=== PATIENT | male | born 1950 | race Caucasian/White ===

== ENCOUNTER 2018-09-25 07:08 | Emergency (ER) | payer OTHER, SELFPAY ==
[2018-09-25 07:54] LABS: Absolute Lymphocytes (CBC) 0.6 K/uL (0.7-4.9); Basophils % 1.1 % (0-1.3); Eosinophils % 2.8 % (0-4.4); Hematocrit 39.9 % (39.6-49.0); Lymphocytes % 10.8 % (15.3-44.8); MPV 8.4 fL (7.6-11.3); Monocytes % 9.1 % (3.3-12.3); RBC Red Blood Cell Count 4.74 M/uL (4.33-5.43)
--- NOTE | 2018-09-25 07:59 | RAD REPORT ---
EXAM DESCRIPTION: CT - Head Brain Wo Cont - 09/25/2018 7:45 am CLINICAL HISTORY: Transient alteration of awareness, declining state COMPARISON: None. TECHNIQUE: Axial 5 mm thick images of the head were obtained without IV contrast. All CT scans are performed using dose optimization technique as appropriate and may include automated exposure control or mA/KV adjustment according to patient size. FINDINGS: No intracranial hemorrhage, mass, edema or shift of mid-line structures. No acute infarcti on changes seen. Mild atrophy and minimal chronic ischemic changes are present. Ventricles are in pro portion to the volume loss. Partially visualized paranasal sinuses show minimal mucosal thickening in the maxillary sinuses. No a ir-fluid levels. Right-side mastoid air cells are clear. Left side mastoid air cells are fully opacif ied and there is partial opacification of the middle ear. No acute bony findings. IMPRESSION: Mild atrophy and minimal chronic ischemic changes present. No acute intracranial finding . Left-side mastoiditis findings are evident with partial opacification of the middle ear.
[2018-09-25 08:13] LABS: Protime INR 5.39
[2018-09-25 08:17] LABS: ALT/SGPT 56 U/L (12-78); AST/SGOT 65 U/L (15-37); Albumin 3.4 g/dL (3.4-5.0); Alkaline Phosphatase 103 U/L (45-117); BUN Blood Urea Nitrogen 9 mg/dL (7-18); Bicarbonate 31 mmol/L (21-32); Bilirubin Direct 0.3 mg/dL (0-0.2); Bilirubin Total 0.8 mg/dL (0.2-1.0); Glucose Level 91 mg/dL (74-106); Magnesium 1.7 mg/dL (1.8-2.4); NT PRO-BNP 207 pg/mL (<125); Potassium 3.4 mmol/L (3.5-5.1); Protein, Total 7.4 g/dL (6.4-8.2); Sodium Level 138 mmol/L (136-145); Troponin (Emerg Dept Use Only) < 0.02 ng/mL (0.0-0.045)
[2018-09-25 08:35] LABS: Anisocytosis 1+; Blood Morphology Comment NOTED (NOT SEEN); Platelet Estimate ADEQ; Urine White Blood Cell Casts OK
--- NOTE | 2018-09-25 08:39 | RAD REPORT ---
EXAM DESCRIPTION: RAD - Chest Single View - 09/25/2018 7:58 am CLINICAL HISTORY: Dyspnea COMPARISON: None. TECHNIQUE: AP portable chest image was obtained 0755 hours . FINDINGS: Lung volumes are low. No peripheral mass or consolidation. No failure or volume overload s uspected. Pacemaker/defibrillator is in place. Heart and vasculature are normal. No measurable pleura l effusion and no pneumothorax. No acute bony abnormality seen. No acute aortic findings suspected. IMPRESSION: No acute cardiopulmonary process.
[2018-09-25] MEDS ORDERED: MAGNESIUM SULFATE 1 gm IVPB 1 GM/100 ML BAG IV ONE (08:45)
[2018-09-25] MEDS ORDERED: POTASSIUM CL SA 10 MEQ TAB PO ONE (08:45)
--- NOTE | 2018-09-25 08:52 | EDPHYS ---
Physician Documentation [facility] Name: Massimo Rivero Age: 68 yrs Sex: Male : 1950 Arrival Date: 09/25/2018 Time: 07:02 Bed 13 Private MD: None, None ED Physician Александр Ruelas HPI: 09/25 08:41 This 68 yrs old Male presents to ER via Wheelchair with complaints of Fall Injury. jr8 08:41 Details of fall: The patient fell from an upright position, while standing. Onset: The jr8 symptoms/episode began/occurred acutely, today. Associated injuries: The patient sustained no obvious injury. Severity of symptoms: At their worst the symptoms were mild. The patient has not experienced similar symptoms in the past. The patient has not recently seen a physician. Patient stated that he fell for the third time secondary to weakness. Denies any pain or injury today. Historical: - Allergies: 07:23 NSAIDS; hj - Home Meds: :23 furosemide 40 mg Oral tab 1 tab 2 times per day [Active]; potassium chloride 20 mEq hj Oral TbER 1 tab 2 times per day [Active]; carvedilol 12.5 mg oral tab 1 tab 2 times per day [Active]; lisinopril 10 mg Oral tab 1 tab once daily [Active]; atorvastatin 40 mg oral tab 1 tab once daily [Active]; Coumadin 2.5 mg Oral tab 1 tab once daily [Active]; Jantoven 2 mg oral tab 1 tab once daily [Active]; - PMHx: 07:23 CHF; Hypertension; Hyperlipidemia; Diverticulitis; hj - PSHx: 07:23 pacemaker; prostatectomy; hj - Immunization history:: Adult Immunizations up to date. - Social history:: Smoking status: Patient/guardian denies using tobacco, Patient/guardian denies using alcohol. - Ebola Screening: : Patient negative for fever greater than or equal to 101.5 degrees Fahrenheit, and additional compatible Ebola Virus Disease symptoms Patient denies exposure to infectious person Patient denies travel to an Ebola-affected area in the 21 days before illness onset. ROS: 08:41 Eyes: Negative for injury, pain, redness, and discharge, ENT: Negative for injury, jr8 pain, and discharge, Neck: Negative for injury, pain, and swelling, Cardiovascular: Negative for chest pain, palpitations, and edema, Respiratory: Negative for shortness of breath, cough, wheezing, and pleuritic chest pain, Abdomen/GI: Negative for abdominal pain, nausea, vomiting, diarrhea, and constipation, Back: Negative for injury and pain, Skin: Negative for injury, rash, and discoloration. 08:41 MS/Extremity: Negative for injury and deformity. 08:41 Constitutional: Positive for malaise. 08:41 Neuro: Positive for weakness. Exam: 08:41 Eyes: Pupils equal round and reactive to light, extra-ocular motions intact. Lids and jr8 lashes normal. Conjunctiva and sclera are non-icteric and not injected. Cornea within normal limits. Periorbital areas with no swelling, redness, or edema. ENT: Nares patent. No nasal discharge, no septal abnormalities noted. Tympanic membranes are normal and external auditory canals are clear. Oropharynx with no redness, swelling, or masses, exudates, or evidence of obstruction, uvula midline. Mucous membranes moist. Neck: Trachea midline, no thyromegaly or masses palpated, and no cervical lymphadenopathy. Supple, full range of motion without nuchal rigidity, or vertebral point tenderness. No Meningismus. Cardiovascular: Regular rate and rhythm with a normal S1 and S2. No gallops, murmurs, or rubs. Normal PMI, no JVD. No pulse deficits. 2+ edema noted lower extremities bilaterally Respiratory: Lungs have equal breath sounds bilaterally, clear to auscultation and percussion. No rales, rhonchi or wheezes noted. No increased work of breathing, no retractions or nasal flaring. Abdomen/GI: Soft, non-tender, with normal bowel sounds. No distension or tympany. No guarding or rebound. No evidence of tenderness throughout. Back: No spinal tenderness. No costovertebral tenderness. Full range of motion. Skin: Warm, dry with normal turgor. Normal color with no rashes, no lesions, and no evidence of cellulitis. MS/ Extremity: Pulses equal, no cyanosis. Neurovascular intact. Full, normal range of motion. Neuro: Awake and alert, GCS 15, oriented to person, place, time, and situation. Cranial nerves II-XII grossly intact. Motor strength 5/5 in all extremities. Sensory grossly intact. Cerebellar exam normal. Normal gait. Vital Signs: 07:25 BP 134 / 90; Pulse 80; Resp 18; Temp 98.1(TE); Pulse Ox 96% on R/A; Weight 115.21 kg; hj Height 6 ft. 2 in. (187.96 cm); Pain 2/10; 08:48 BP 140 / 81; Pulse 81; Resp 18; Pulse Ox 97% on R/A; hj 09:49 BP 142 / 80; Pulse 80; Resp 18; Pulse Ox 98% on R/A; hj 07:25 Body Mass Index 32.61 (115.21 kg, 187.96 cm) MDM: 07:06 Patient medically screened. [facility] 08:51 Data reviewed: vital signs, nurses notes, lab test result(s), EKG, radiologic studies, [facility] CT scan, plain films. Data interpreted: Pulse oximetry: on room air is 97 %. Interpretation: normal. Counseling: I had a detailed discussion with the patient and/or guardian regarding: the historical points, exam findings, and any diagnostic results supporting the discharge/admit diagnosis, lab results, radiology results, the need for outpatient follow up, a family practitioner, to return to the emergency department if symptoms worsen or persist or if there are any questions or concerns that arise at home. 09/25 07:22 Order name: Basic Metabolic Panel 09/25 07:22 Order name: CBC with Diff; Complete Time: 08:38 09/25 07:22 Order name: LFT's; Complete Time: 08:25 09/25 07:22 Order name: Magnesium; Complete Time: 08:25 09/25 07:22 Order name: NT PRO-BNP; Complete Time: 08:25 09/25 07:22 Order name: PT-INR; Complete Time: 08:14 09/25 07:22 Order name: Troponin (emerg Dept Use Only); Complete Time: 08:25 09/25 07:22 Order name: XRAY Chest (1 view); Complete Time: 08:41 09/25 07:22 Order name: EKG; Complete Time: 07:24 09/25 07:23 Order name: CT Head Brain wo Cont; Complete Time: 08:13 09/25 07:23 Order name: Basic Metabolic Panel; Complete Time: 08:25 EDMS 09/25 08:04 Order name: CBC Smear Scan; Complete Time: 08:38 [facility] 09/25 07:22 Order name: Cardiac monitoring; Complete Time: 07:26 [facility] 09/25 07:22 Order name: EKG - Nurse/Tech; Complete Time: 07:36 [facility] 09/25 07:22 Order name: IV Saline Lock; Complete Time: 07:56 [facility] 09/25 07:22 Order name: Labs collected and sent; Complete Time: 07:56 [facility] 09/25 07:22 Order name: O2 Per Protocol; Complete Time: 07:26 [facility] 09/25 07:22 Order name: O2 Sat Monitoring; Complete Time: 07:26 [facility] Administered Medications: 08:25 Drug: Magnesium Sulfate 1 grams Route: IVPB; Infused Over: 1 hrs; Site: right antecubital; 08:58 Follow up: IV Status: Completed infusion 09:50 Follow up: IV Status: Completed infusion; IV Intake: 100ml 08:25 Drug: Potassium Chloride 20 mEq Route: PO; 08:58 Follow up: Response: No adverse reaction Disposition: 09/26 09:47 Co-signature as Attending Physician, Александр Ruelas MD I agree with the assessment and [facility] plan of care. Disposition: 09/25/18 08:51 Discharged to Home. Impression: Weakness. - Condition is Stable. - Discharge Instructions: Weakness. - Medication Reconciliation Form, Thank You Letter, Antibiotic Education, Prescription Opioid Use form. - Follow up: Private Physician; When: 1 - 2 days; Reason: Recheck today's complaints, Continuance of care, Re-evaluation by your physician. - Problem is new. - Symptoms have improved. Signatures: Dispatcher [employer] Александр Zayas MD MD cha Roszak, Josh, PA PA jr8 Carlos Manuel Barber RN RN hj Corrections: (The following items were deleted from the chart) 09/25 09:50 08:51 09/25/2018 08:51 Discharged to Home. Impression: Weakness. Condition is Stable. hj Forms are Medication Reconciliation Form, Thank You Letter, Antibiotic Education, Prescription Opioid Use. Follow up: Private Physician; When: 1 - 2 days; Reason: Recheck today's complaints, Continuance of care, Re-evaluation by your physician. Problem is new. Symptoms have improved. jr8
--- NOTE | 2018-09-25 08:52 | ER ---
Nurse's Notes [facility] [place], [place] Name: Massimo Rivero Age: 68 yrs Sex: Male : 1950 Arrival Date: 09/25/2018 Time: 07:02 Bed 13 Private MD: None, None Diagnosis: Weakness Presentation: 09/25 07:17 Presenting complaint: Patient states: im shivering and my legs and hands are swollen, hj yesterday i fell but did not hit head and no LOC; reports SOB; denies chest pain;. Transition of care: patient was not received from another setting of care. Onset of symptoms was September 25, 2018. Risk Assessment: Do you want to hurt yourself or someone else? Patient reports no desire to harm self or others. Initial Sepsis Screen: Does the patient meet any 2 criteria? No. Patient's initial sepsis screen is negative. Does the patient have a suspected source of infection? No. Patient's initial sepsis screen is negative. Care prior to arrival: None. 07:17 Method Of Arrival: Wheelchair 07:17 Acuity: YAEL 3 hj Triage Assessment: 07:24 General: Appears in no apparent distress. uncomfortable, Behavior is calm, cooperative, hj appropriate for age. Pain: Complains of pain in right arm. Historical: - Allergies: 07:23 NSAIDS; hj - Home Meds: 07:23 furosemide 40 mg Oral tab 1 tab 2 times per day [Active]; potassium chloride 20 mEq hj Oral TbER 1 tab 2 times per day [Active]; carvedilol 12.5 mg oral tab 1 tab 2 times per day [Active]; lisinopril 10 mg Oral tab 1 tab once daily [Active]; atorvastatin 40 mg oral tab 1 tab once daily [Active]; Coumadin 2.5 mg Oral tab 1 tab once daily [Active]; Jantoven 2 mg oral tab 1 tab once daily [Active]; - PMHx: 07:23 CHF; Hypertension; Hyperlipidemia; Diverticulitis; hj - PSHx: 07:23 pacemaker; prostatectomy; hj - Immunization history:: Adult Immunizations up to date. - Social history:: Smoking status: Patient/guardian denies using tobacco, Patient/guardian denies using alcohol. - Ebola Screening: : Patient negative for fever greater than or equal to 101.5 degrees Fahrenheit, and additional compatible Ebola Virus Disease symptoms Patient denies exposure to infectious person Patient denies travel to an Ebola-affected area in the 21 days before illness onset. Screenin:24 Abuse screen: Denies threats or abuse. Denies injuries from another. Nutritional hj screening: No deficits noted. Tuberculosis screening: No symptoms or risk factors identified. Fall Risk None identified. Assessment: 07:40 General: Appears in no apparent distress. uncomfortable, Behavior is calm, cooperative, hj appropriate for age. Pain: Complains of pain in right arm. Neuro: Level of Consciousness is awake, alert, obeys commands, Oriented to person, place, time, situation, Appropriate for age. Cardiovascular: Capillary refill < 3 seconds Patient's skin is warm and dry. Respiratory: Reports shortness of breath Airway is patent Respiratory effort is even, unlabored, Respiratory pattern is regular, symmetrical. GI: No signs and/or symptoms were reported involving the gastrointestinal system. : No signs and/or symptoms were reported regarding the genitourinary system. : Reports leg swelling. EENT: No signs and/or symptoms were reported regarding the EENT system. Derm: No signs and/or symptoms reported regarding the dermatologic system. Musculoskeletal: Reports pain in right arm. 08:57 Reassessment: Patient and/or family updated on plan of care and expected duration. Pain hj level reassessed. Patient is alert, oriented x 3, equal unlabored respirations, skin warm/dry/pink. mag IV running; for D/C post infusion;. 09:20 Reassessment: wound care performed on a skin tear on R lower arm, applied non adherent hj dressing;. Vital Signs: 07:25 BP 134 / 90; Pulse 80; Resp 18; Temp 98.1(TE); Pulse Ox 96% on R/A; Weight 115.21 kg; hj Height 6 ft. 2 in. (187.96 cm); Pain 2/10; 08:48 BP 140 / 81; Pulse 81; Resp 18; Pulse Ox 97% on R/A; hj 09:49 BP 142 / 80; Pulse 80; Resp 18; Pulse Ox 98% on R/A; hj 07:25 Body Mass Index 32.61 (115.21 kg, 187.96 cm) ED Course: 07:02 Patient arrived in ED. mr 07:02 None, None is Private Physician. mr 07:06 Johnson June PA is PHCP. jr8 07:06 Александр Ruelas MD is Attending Physician. jr8 07:16 Carlos Manuel Barber, RN is Primary Nurse. hj 07:18 Triage completed. hj 07:24 Arm band placed on left wrist. hj 07:25 Patient has correct armband on for positive identification. Placed in gown. Bed in low hj position. Call light in reach. Side rails up X 1. Adult w/ patient. 07:36 EKG done, by ED staff, reviewed by Johnson ESPINOSA. em 07:40 Initial lab(s) drawn, by sc, sent to lab. Inserted saline lock: 20 gauge in left hj antecubital area, using aseptic technique. Blood collected. 07:46 CT completed. Patient tolerated procedure well. Patient moved back from CT. mw3 07:48 CT Head Brain wo Cont In Process Unspecified. EDMS 07:58 XRAY Chest (1 view) In Process Unspecified. EDMS 09:49 No provider procedures requiring assistance completed. IV discontinued, intact, hj bleeding controlled, No redness/swelling at site. Pressure dressing applied. Administered Medications: 08:25 Drug: Magnesium Sulfate 1 grams Route: IVPB; Infused Over: 1 hrs; Site: right hj antecubital; 08:58 Follow up: IV Status: Completed infusion hj 09:50 Follow up: IV Status: Completed infusion; IV Intake: 100ml hj 08:25 Drug: Potassium Chloride 20 mEq Route: PO; hj 08:58 Follow up: Response: No adverse reaction hj Intake: 09:50 IV: 100ml; Total: 100ml. hj Outcome: 08:51 Discharge ordered by . jr8 09:49 Discharged to home via wheelchair. hj 09:49 Condition: stable 09:49 Discharge instructions given to patient, family, Instructed on discharge instructions, follow up and referral plans. Demonstrated understanding of instructions, follow-up care. 09:50 Patient left the ED. hj Signatures: Dispatcher [employer] Ghada Evans mr MayaFrederick, GUEST ASSOCIATE GUEST ASSOCIATE em Johnson June PA PA jr8 Carlos Manuel Barber, RN RN Betzaida Suazo mw3
--- NOTE | 2018-09-26 07:55 | EKG ---
Test Date: 2018-09-25 Test Time: 07:31:12 Surgical Oncologist: JOELLE MEASUREMENT RESULTS: Intervals: Rate: 92 CO: QRSD: 176 QT: 432 QTc: 534 [place]: P: CO: QRS: 219 T: 13 INTERPRETIVE STATEMENTS: Ventricular-paced rhythm Biventricular pacemaker detected Abnormal ECG No previous ECG available for comparison Electronically Signed On 09-26-18 07:53:51 CDT by Nabil Montanez
== END 2018-09-25 09:50 | disposition home or self-care (01) ==
LOC: ER 07:08
DX: R53.1 Weakness (principal); I10 Essential (primary) hypertension; I50.9 Heart failure, unspecified; E78.5 Hyperlipidemia, unspecified; Z88.6 Allergy status to analgesic agent; Z95.0 Presence of cardiac pacemaker
CPT/HCPCS: 96365; 93005; 85025; 80048; 36415; 83735; 85610; 80076; 84484; 83880; 70450; 71045; 99284; J3475